=== PATIENT | female | born 1990 | race Caucasian/White ===

== ENCOUNTER 2019-07-31 14:23 | Outpatient (CLI) | payer OTHER | END 2019-07-31 14:24 | disposition home or self-care (01) | LOC: DI 14:23 | PROVIDERS: ATTEND Nurse Practitioner Family | DX: Z82.49 Family history of ischemic heart disease and other diseases of the circulatory system (principal) | CPT/HCPCS: 93306 ==

== ENCOUNTER 2020-04-04 14:49 | Outpatient (CLI) | payer OTHER ==
--- NOTE | 2020-04-04 15:39 | CT Report ---
PROCEDURE: HEAD WO INDICATIONS: Migraine headache, with aura TECHNIQUE: Noncontrast 4.5 mm thick angled axial sections acquired from the foramen magnum to the vertex. For r adiation dose reduction, the following was used: automated exposure control, adjustment of mA and/or kV according to patient size. COMPARISON: None. FINDINGS: Image quality: Excellent. CSF spaces: Basal cisterns are patent. No extra-axial fluid collections. Ventricles are normal in size and shape. Brain: No midline shift. No intracranial masses or hemorrhage. Cordero-white matter interface is norm al. Skull and face: Calvarium and visualized facial bones are intact, without suspicious lesions. Sinuses: Visualized sinuses and mastoids are clear. IMPRESSION: No acute intracranial finding. Reviewed by: Hang Bhardwaj MD on 04/04/2020 3:38 PM PDT Approved by: Hang Bhardwaj MD on 04/04/2020 3:38 PM PDT Station ID: [id number]
== END 2020-04-04 14:50 | disposition home or self-care (01) ==
LOC: DI 14:49
PROVIDERS: ATTEND Nurse Practitioner Family
DX: G43.109 Migraine with aura, not intractable, without status migrainosus (principal)
CPT/HCPCS: 70450

== ENCOUNTER 2020-05-05 08:00 | Outpatient (CLI) | payer OTHER ==
[2020-05-07 12:21] LABS: HSV 1 IGG TYPE SPECIFIC AB 4.87 index; HSV 2 IGG TYPE SPECIFIC AB <0.90 index
== END 2020-05-05 23:59 | disposition home or self-care (01) ==
LOC: LAB.WCP 08:00
PROVIDERS: ATTEND Nurse Practitioner Family
DX: Z11.3 Encounter for screening for infections with a predominantly sexual mode of transmission (principal)
CPT/HCPCS: 36415; 81599; 86695; 86696

== ENCOUNTER 2022-02-03 08:08 | Outpatient (CLI) | payer OTHER ==
--- NOTE | 2022-02-04 11:43 | Ultrasound Report ---
PROCEDURE: Pelvic w/Transvaginal INDICATIONS: IUD SURVEILLANCE TECHNIQUE: Real-time scanning was performed of the pelvic organs, with image documentation. Additional endovagi nal scanning was necessary due to incomplete visualization of the adnexal and endometrial structures by transabdominal scanning. COMPARISON: None. FINDINGS: Uterus: Uterus is anteverted and normal in size at 8.6 x 3.8 x 6.6 cm. The myometrium is homogeneou s. The endometrium measures 5 mm in combined thickness. An intrauterine device is visualized within the endometrial cavity and appears to be appropriately positioned. Ovaries: The right ovary measures 4.0 x 2.4 x 3.5 cm, with a calculated ovarian volume of 17.8 cc. The left ovary measures 3.3 x 1.8 x 3.4 cm, with a calculated ovarian volume of 10.6 cc. The ovaries have a normal sonographic appearance. Less than 12 follicles can be seen in each ovary. No adnexal masses are seen. Other: No pathologic free abdominal or pelvic fluid. IMPRESSION: Pelvic ultrasound without acute sonographic abnormalities. Intrauterine device visualize d within the endometrial cavity. Reviewed by: Arnav Perdomo MD on 02/04/2022 11:42 AM PDT Approved by: Arnav Perdomo MD on 02/04/2022 11:42 AM PDT Station ID: [id number]
== END 2022-02-03 08:09 | disposition home or self-care (01) ==
LOC: DI 08:08
PROVIDERS: ATTEND Nurse Practitioner
DX: Z30.431 Encounter for routine checking of intrauterine contraceptive device (principal)